=== PATIENT | female | born 1975 | race Caucasian/White ===

== ENCOUNTER → 2018-01-22 08:22 | Outpatient (CLI) | payer MEDICAID, SELFPAY ==
--- NOTE | 2018-01-22 08:44 | RAD_ITS ---
PROCEDURE: Fluoroscopic guided Lumbar Puncture. DATE: January 22, 2018. CLINICAL INDICATION: Idiopathic increased intracranial pressure. PHYSICIAN: Abbe Leblanc M.D. MEDICATIONS: 1% lidocaine administered subcutaneously for local anesthesia. ACCESS SITE: Lower posterior back. NEEDLE: 22-gauge spinal needle. SPECIMEN: Approximately 7 mL clear]CSF fluid. FLUOROSCOPY TIME (if supplied): (1:46) minutes/seconds COMPLICATIONS: None immediate. The risks, benefits, and alternatives to the procedure were explained to the patient. The specific risks of bleeding, infection, and neurovascular injury were detailed and accepted. Witnessed informed consent was obtained. The patient was placed on the fluoroscopic table in the prone position. The level for needle entry was determined and marked. The overlying skin was cleaned and prepped in the usual sterile fashion. 2% lidocaine was administered subcutaneously for local anesthesia. Under fluoroscopic guidance a 22-gauge spinal needle was advanced. The thecal sac was entered at the L3- L4 vertebral level. The inner stylet was removed. There was spontaneous flow of clear CSF fluid. Opening pressure was measured at less than 6 mm. The patient was placed in a reversed Trendelenburg position. Approximately 7 mL of cerebrospinal fluid was collected using gravity. The specimen was collected and submitted to the laboratory for further evaluation. The needle was withdrawn,. Hemostasis was achieved and a sterile dressing placed. The patient tolerated the procedure well without any immediate complications. The patient was placed supine with head elevated and returned to the floor in stable condition. RAD/Fluoro Guided Lumbar Puncture IMPRESSION: Successful fluoroscopic-guided lumbar puncture. Electronically Signed: Abbe Leblanc MD at 10:49 EDT Tel [phone], Service support ,
[2018-01-22 08:53] VITALS: BP 132/68; PULSE 79; RESP 16; TEMP 36.8; O2SAT 98; BMI 47.0
[2018-01-22 10:16] LABS: Oligoclonal Banding REF LAB
[2018-01-22 10:31] LABS: Body Fluid Mononuclear WBC # 0.001 10^3/uL; Body Fluid Polynuclear WBC # 0.001 10^3/uL; Total Cell Count CSF 0.002 10^3/uL (0.000-0.000); White Count, CSF 0.002 10^3/uL (0.000-0.000)
[2018-01-22 10:50] LABS: Glucose Spinal Fluid 51 mg/dL (40-75)
[2018-01-22 10:51] LABS: Appearance CSF (character) CLEAR (Clear); Auto B Fluid Analyzer BKGD Ct COUNTS W/IN LIMITS (W/IN LIMITS); Body Fluid QC Type(s) BF1Q; CSF Color COLORLESS (Colorless); RBC Count, Spinal Fluid 143 /mm-3 (None seen); Tested Tube # 2
[2018-01-22 10:55] VITALS: BP 126/57; PULSE 63; RESP 16; O2SAT 98
[2018-01-22 10:56] LABS: LDH,Body Fluid 26 Units/l (Not Establ.)
[2018-01-23 14:42] LABS: Pathologist Review Reviewed
== END ==
PROVIDERS: Family Provider Internal Medicine; PCP Internal Medicine
DX: G93.2 Benign intracranial hypertension (principal); R55 Syncope and collapse; Z86.73 Personal history of transient ischemic attack (TIA), and cerebral infarction without residual deficits; R32 Unspecified urinary incontinence; E78.5 Hyperlipidemia, unspecified
CPT/HCPCS: 62270; 77003; 82945; 83615; 83916; 84157; 87070; 87205; 89050; 89051

== ENCOUNTER 2018-07-18 12:00 | Outpatient (RCR) | payer MEDICAID, SELFPAY ==
--- NOTE | 2018-06-24 12:11 | HP.PTEVAL_ITS ---
Patient's Visit Information BERTO HAYS is a 42 year old F referred to Physical Therapy by Otto Schmitt with a diagnosis of Acute R knee pain, patellar tendonitis. Date of Evaluation: 06/11/18 Physical Therapist: Donnie Solis - Visit Plan Frequency: 2x /Week Duration: 6 Weeks Plan: Begin pt with LE stretching as tolerated. Use Ultrasound on pt's R petallar tendon to decrease inflamation. progress to LE strengthening as tolerated. - Subjective Subjective: pt reports R anterior knee pain following surgery 7 months ago. pt reported hearing a pop and feeling increased pain while pivoting at work 1 week ago. 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 pt reports a 7/10 pain on most days with little relief. pt attempts to alieviate pain by applying ice with little benefit. pt reports the use of knee band but was not wearing it upon evaluation. pt reports increased pain while ascending and descending stairs with dificulty climbing in and out of bed. - Pain Right Knee Pain Intensity (Out of 10): 0 Pain Intensity Range: 7 - Objective POSTURE: Pt. has normal posture in stance, except slight L wt. shift. Normal patellel hieghts and iliac crest symetrical. palpation: tender upon palpation of the anterior and anterior medial right knee (petellar tendon and joint line) and along MCL. neuro: normal sensation. did not assess petallar tendon reflex due to location of pain. ROM: R knee- 0-0-105. L knee 0-0-128deg. Pt. tender with increased knee flexion and extension of R knee. Tight HS on R side. MMT: pain with resisted knee extension. 5/5 strength for left lower extremity. right lower extremity - ankle 5/5, knee - extension 4+/5, flexion 4+/5. hip - flexion 4/5. gait: slight toeing out of the right food. slight decreased knee flexion during. difficutly ascending and descending stairs. Takes steps one at a time leading with the good up and the bad down. pt fearful to repeat reciprically. - Special Tests R Knee Tere - Meniscus: Positive R Knee Anterior Drawer - ACL: Negative R Knee Posterior Drawer - PCL: Negative R Knee Valgus - MCL: Positive R Knee Varus - LCL: Negative Comments: No laxity with MCL testing, but did have increased tenderness - Goals Goal 1:: pt be able to complete HEP independantly Goal Time Frame: 4-6 Weeks Goal 2:: decrease pain with walking to allow for all daily and work activities Goal Time Frame: 4-6 Weeks Goal 3:: increase ROM to allow for increased functional activity Goal Time Frame: 4-6 Weeks Goal 4:: increase R LE strength to 5/5, symetrical with L LE to allow for incrased navigation of stairs and stepping. Goal Time Frame: 4-6 Weeks Goal 5:: be able to ascend and descend stairs reciprically with only one handrail, allowing increased mobility Goal Time Frame: 4-6 Weeks - Rehabilitation Potential Physical Therapy Diagnosis: Pt. has signs and symptoms consistent with acute R knee pain with patellar tendonitis. Pt. would benefit from PT to decrease symptoms and promote increased stregnth. progressing back to functional mobility as tolerated. Rehabilitation Potential: Good - Anticipated Interventions Patient/Client Instruction: Educate patient on: Condition, Plan of Care, Risk Factors, Benefits of Fitness Program For the Purpose of:: To improve health and function, To foster healthy habits, To improve self management, To prevent re-injury Therapeutic Exercise to Include: Strength training, Power training, Balance training, Coordination, Flexibilty training, Passive ROM, Active ROM For the Purpose of:: To decrease pain, To decrease swelling/inflammation, To increase ROM, To improve muscle performance and motor function, To improve gait and locomotor functions, To improve health of tissue, To decrease soft tissue restriction, To increase flexibility/ROM, To improve balance TENS: Yes Cryotherapy (ice pack, ice massage): Yes Thermo therapy (hot pack): Yes Ultrasound (thermal/non thermal): Yes For the Purpose of:: To decrease pain, To decrease swelling/inflammation, To increase ROM Thank you for the opportunity to evaluate your patient. For Medicare and Medicare HMO plans, please review the plan of care and approve it. It will need to be FAXED BACK to us at [phone] for Medicare purposes. Please let me know if there are questions or concerns regarding this plan of care. Physician Signature: Date:
--- NOTE | 2018-07-18 13:06 | HP.PTDCSUM ---
HP - PT D/C Summary It has been my pleasure to treat BERTO HAYS under orders from Otto Schmitt, for the diagnosis of Acute R knee pain, patellar tendonitis for a total of 6 visit(s). Discharge Date: 07/18/18 Please see the following information for a summary of their discharge status. - Subjective Subjective: Pt. reports I am doing amazing. She reports no pain currently. Pt. is pleased with PT outcomes. - Pain Right Knee Pain Intensity (Out of 10): 0 - Overall Improvement % Improvement: 95 - Objective Objective/Function: MMT- 5/5 throughout bilateral LEs. ROM: L knee- 0-0-130deg. R AROM- 0-0-125 no pain. Gait: Pt. reports no pain with walking, she has slight increased lateral hip translation. Pt. has normal step lengthm, sligth decrease in knee flexion during gait. STAIRS: Pt. is able to complete with reciprocal pattern with 2 HR, but has increased fucntional weakness with descending. - Goals Goal 1:: pt be able to complete HEP independantly Goal Progress: Goal Met Goal 2:: decrease pain with walking to allow for all daily and work activities Goal Progress: Goal Met Goal 3:: increase ROM to allow for increased functional activity Goal Progress: Goal Met Goal 4:: increase R LE strength to 5/5, symetrical with L LE to allow for incrased navigation of stairs and stepping. Goal Progress: Goal Met Goal 5:: be able to ascend and descend stairs reciprically with only one handrail, allowing increased mobility Goal Progress: Progressing - Plan Plan: Pt. to be DC to HEP at this point in time. - D/C Information Discharge Comments: Pt. progressed as expected with PT. Pt. is no longer having pain. Pt. is back to completing all ADLs. Pt. reports no longer having pain in her knee. Pt. was treated with quad strengthening and progressing to [facility] functional strengthening. Pt. will be DC to PT at this point in time. If there are questions or concerns regarding this patient's physical therapy, please feel free to call me at [phone]. Thank you for the referral of this patient. Sincerely, Donnie Solis
== END 2018-07-18 14:12 | disposition home or self-care (01) ==
LOC: PT 12:00
PROVIDERS: Family Provider Internal Medicine; PCP Internal Medicine; Visit Provider Orthopaedic Surgery
DX: M25.561 Pain in right knee (principal); M76.51 Patellar tendinitis, right knee
CPT/HCPCS: 97035; 97110; 97162; 97530

== ENCOUNTER → 2020-04-27 13:33 | Outpatient (CLI) | payer MEDICAID, SELFPAY ==
--- NOTE | 2020-04-27 13:35 | RAD_ITS ---
STUDY: X-RAY - RIGHT KNEE REASON FOR EXAM: Pain. TECHNIQUE: 4 view(s) of the knee. COMPARISON: None. FINDINGS: Normal visualized distal femur. Normal visualized proximal tibia and fibula. Normal proximal tibiofibular articulation. There is mild joint space narrowing of the medial femorotibial compartment. Normal lateral femorotibial compartment. Normal patellofemoral articulation. The soft tissue structures are unremarkable. RAD/Knee 4 or More Views IMPRESSION: Mild joint space narrowing of the medial femorotibial compartment. Electronically Signed: Francesco Dickson MD at 14:34 EDT Tel , Service support ,
== END ==
PROVIDERS: PCP Internal Medicine; Referring Provider Orthopaedic Surgery; Visit Provider Orthopaedic Surgery
DX: S80.01XA Contusion of right knee, initial encounter (principal)
CPT/HCPCS: 73564

== ENCOUNTER 2020-06-10 14:30 | Outpatient (RCR) | payer OTHER, MEDICAID, SELFPAY ==
[2020-04-27 14:28] VITALS: BMI 47.2
--- NOTE | 2020-05-20 16:47 | HP.PTEVAL_ITS ---
Patient's Visit Information BERTO HAYS is a 44 year old F referred to Physical Therapy by MARIE Melendez with a diagnosis of Right Knee Contusion. Date of Evaluation: 05/20/20 Physical Therapist: Kelsey Berg DPT - Visit Plan Frequency: 3x /Week Duration: 3 Weeks Plan: Focus on LE and core strenth/stabilzation- US for inflammation modality - Subjective Patient reports that she fell on April 13 at work- rug in the closet was folded over and she fell on her right knee. Has had surgery on the right knee. Patient reports the pain is getting better. Pain is located along the medial patella and joint line. Describes the pain as dull and achy. Worst: 10 Agg: working, walking, bending, stooping Eases: Naproxen if its bad Best: 10/17. No radiating pain. No N/T in the toes. Has had x-rays but no MRI- no injections. The leg does buckle under her but that is not since the fall. 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 Sleep: disturbed.PMHx: Stroke- right sided weakness, tounge tied, small memory loss, HTN Meds: no changes since NOW clinic visit. - Objective Posture: FH, RS, Increased kyphosis-can correct but does not maintain. Gait: antalgic- decreased stance on the right LE- poor heel strike. HR/TR: able reports discomfort with TR in the knee. SLS: 7 seconds then LOB. Tandem stance: x5 steps no LOB. Sensation; WNL to gross touch bilaterally. Palpation: tender along medial joint line. ROM:0-120 degrees- pain with end range extension feels like it will hyper extend. Strength:Ankle: 5/5, Knee: 4+/5, Hip: 4/5 throughout Core: fair minus. Special Test: Tere: positive - Goals Goal 1:: Patient will be I with HEP and progression Goal Time Frame: 4-6 Weeks Goal 2:: Patient will ambulate <300 feet with a normalized gait pattern Goal Time Frame: 4-6 Weeks Goal 3:: Patient will asc/desc 8' stairs recip with 1 HR Goal Time Frame: 4-6 Weeks Goal 4:: Patient will report 0/10 pain for 1 week Goal Time Frame: 4-6 Weeks - Rehabilitation Potential Physical Therapy Diagnosis: Patient presents with hypomobility- she has decreased strength, flex and muscular endurance leading to increased pain with ADL's. Rehabilitation Potential: Good - Anticipated Interventions Patient/Client Instruction: Educate patient on: Benefits of Fitness Program Therapeutic Exercise to Include: Strength training, Endurance training, Balance training, Body mechanics, Postural training, Flexibilty training, Gait and locomotor training, Neuromotor development, Passive ROM, Active ROM, Dynamic Lumbar Stabilization, Scapular Strength/Stabilization For the Purpose of:: To improve muscle performance and motor function TENS: Yes Cryotherapy (ice pack, ice massage): Yes Thermo therapy (hot pack): Yes Ultrasound (thermal/non thermal): Yes For the Purpose of:: To decrease pain Thank you for the opportunity to evaluate your patient. For Medicare and Medicare HMO plans, please review the plan of care and approve it. It will need to be FAXED BACK to us at [phone] for Medicare purposes. For Medicare only, by signing this I certify the plan of care. Please let me know if there are questions or concerns regarding this plan of care. Physician Signature: __Date:
--- NOTE | 2020-06-10 14:48 | HP.PTDCSUM ---
It has been my pleasure to treat BERTO HAYS referred by MARIE Melendez, with the diagnosis of Right Knee Contusion for a total of 6 visit(s). Discharge Date: Please see the following information for a summary of their discharge status. Subjective: Patient reports that she is a little sore at work but when she is at home its not as bad. / today. The only problem now is that she is overweight so that is whats bothering her knees. Ready to be done with PT Right Knee Pain Intensity (Out of 10): 4 % Improvement: 90 Objective/Function: Posture: FH, RS, Increased kyphosis-can correct but does not maintain for longer than 1 min before she slumps. Stairs: asc and desc 8 recip with no HR. Gait: no deviation noted and her fausto is normal HR/TR: no pain SLS: 12 seconds then LOB. Tandem stance: x5 steps no LOB. Sensation; WNL to gross touch bilaterally. Palpation: not tender to touch. ROM:0-120 degrees-no pain Strength:Ankle: 5/5, Knee: 5/5, Hip: 4+/5 throughout Core: fair. Special Test: Tere: positive Goal 1:: Patient will be I with HEP and progression Goal Progress: Goal Met Goal 2:: Patient will ambulate <300 feet with a normalized gait pattern Goal Progress: Goal Met Goal 3:: Patient will asc/desc 8' stairs recip with 1 HR Goal Progress: Goal Met Goal 4:: Patient will report 0/10 pain for 1 week Goal Progress: Progressing Plan: Discharge to [facility] If there are questions or concerns regarding this patient's physical therapy, please feel free to call me at [phone]. Thank you for the referral of this patient. Sincerely, Kelsey Berg DPT
== END 2020-06-10 19:00 | disposition home or self-care (01) ==
LOC: PT 14:30
PROVIDERS: PCP Internal Medicine; Visit Provider Physician Assistant Surgical
DX: S80.01XD Contusion of right knee, subsequent encounter (principal)
CPT/HCPCS: 97014; 97035; 97110; 97161; 97164; G0283

== ENCOUNTER → 2021-01-05 08:22 | Outpatient (CLI) | payer MEDICAID, SELFPAY ==
[2020-04-27 14:28] VITALS: BMI 47.2
--- NOTE | 2021-01-05 08:30 | RAD_ITS ---
STUDY: X-RAY - ESOPHAGUS (BARIUM SWALLOW) WITH FLUOROSCOPY REASON FOR EXAM: Female, 45 years old. DYSPHAGIA. History of gastroesophageal reflux disease. TECHNIQUE: 16 view(s) of the esophagus were obtained following swallowing of barium. FLUOROSCOPY TIME (if supplied): (0:32) minutes/seconds COMPARISON: None. FINDINGS: There is no demonstrated esophageal foreign body. There is no demonstrated stricture or mucosal abnormality. Moderate sized hiatal hernia with gastroesophageal reflux. The patient ingested a 12 mm tablet of barium without any difficulty. Normal visualized aortic arch and descending thoracic aorta. Normal visualized pulmonary parenchyma. Normal visualized osseous structures of the thorax. RAD/Esophagus Dual Contrast IMPRESSION: Moderate sized hiatal hernia with gastroesophageal reflux. Electronically Signed: Abbe Leblanc MD at 13:21 EDT , Service support ,
== END ==
PROVIDERS: PCP Registered Nurse; Referring Provider Nurse Practitioner Adult Health; Visit Provider Nurse Practitioner Adult Health
DX: R13.10 Dysphagia, unspecified (principal)
CPT/HCPCS: 74221

== ENCOUNTER 2021-02-08 08:12 | Day surgery (SDC) | payer MEDICAID, SELFPAY ==
[2021-01-17 13:12] VITALS: BMI 51.7
--- NOTE | 2021-02-08 | COLBX_PTH ---
PATIENT: BERTO ARAIZA LOC: [facility] U#:[id number] AGE/SX: 45/F ROOM: RE02/08/[address]: Dr. Antony Coronado MD : 1975 BED: DIS: 02/08/2021 SPEC #: [id number] RECD: 02/08/21 11:12 STATUS: BASHIR RICARDO #: [id number] JOSEPH: 02/08/21 00:[address]: Antony Coronado DEPT: SURGICAL PATHOLOGY RECD BY: Daniel Sprague ENTERED: 02/08/21 11:13 SP TYPE: COLON BX OTHR DR: Flor Gilbert, [employer]-C Tissues: A - Duodenum, NOS B - Gastrointestinal mucous membrane, NOS C - Esophageal mucous membrane D - Esophageal mucous membrane Procedures: Special Stain Group II Surgery Specimen Level IV Alcian Blue/PAS (control) HEADER OPERATION: Colonoscopy, EGD ([place]) PRE-OP DIAGNOSIS: Right lower quadrant abdominal pain; diarrhea; constipation; esophageal dysphagia; GERD TISSUE SUBMITTED: A ? Duodenum biopsy, B ? Antrum biopsy for H. pylori and path, C ? Distal esophagus biopsy, D ? Mid esophagus biopsy MICROSCOPIC DIAGNOSIS A. Duodenum, biopsy: A fragment of duodenal mucosa, no pathologic diagnosis. B. Antrum, biopsy: Mild gastritis. See microscopic description and comment. C. Distal esophagus, biopsy: A fragment of gastroesophageal mucosa with mild chronic inflammation. Intestinal metaplasia (goblet cell metaplasia) not identified. See comment. D. Mid esophagus, biopsy: Fragments of squamous epithelium with changes consistent with eosinophilic esophagitis. See comment. SJ:rg 02/09/2021 COMMENT B. The results of immunohistochemistry for Helicobacter pylori will be reported separately ([id number]). C. Alcian blue/PAS stain with matched control is used in the evaluation of the specimen. D. Increased number of eosinophils (more than 20 per high power field) are noted consistent with eosinophilic esophagitis. Mild chronic inflammation is also noted. Correlation with clinical, endoscopic findings and appropriate follow up are necessary. Case has been reviewed in consultation with Dr. Gavin who concurs with the above diagnosis. IDC:AM MICROSCOPIC DESCRIPTION Slides are reviewed. B. The specimen shows fragments of gastric mucosa with chronic inflammatory cell infiltrates in the lamina propria consisting of lymphocytes and plasma cells, consistent with mild chronic gastritis. GROSS DESCRIPTION A - Received in fixative is one container labeled with the patient's name and designated duodenum biopsy. The specimen consists of one irregular fragment of light gasca soft tissue that measures 0.3 x 0.3 x 0.1 cm. The specimen is totally submitted in one cassette. B - Received in fixative is one container labeled with the patient's name and designated antrum biopsy. The specimen consists of one irregular fragment of light gasca soft tissue that measures 0.3 x 0.2 x 0.1 cm. The specimen is totally submitted in one cassette. C - Received in fixative is one container labeled with the patient's name and designated distal esophagus biopsy. The specimen consists of one irregular fragment of light gasca soft tissue that measures 0.4 x 0.3 x 0.1 cm. The specimen is totally submitted in one cassette. D - Received in fixative is one container labeled with the patient's name and designated mid esophagus biopsy. The specimen consists of multiple irregular fragments of light gasca soft tissue that in aggregate measure 0.6 x 0.2 x 0.1 cm. The specimen is totally submitted in one cassette. / SJ:elsie 02/08/21 TC:3 [facility]: [id number], [id number]
[2021-02-08] MEDS: Lactated Ringers 1,000 ML 100 ML IV (08:46)
[2021-02-08 08:47] VITALS: BP 158/81; PULSE 88; RESP 16; TEMP 36.3; BMI 51.0
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
--- NOTE | 2021-02-08 09:30 | IMM_PTH ---
PATIENT: BERTO ARAIZA LOC: [facility] U#:[id number] AGE/SX: 45/F ROOM: RE02/08/[address]: Dr. Antony Coronado MD : 1975 BED: DIS: 02/08/2021 SPEC #: [id number] RECD: 02/08/21 12:03 STATUS: BASHIR RICARDO #: [id number] JOSEPH: 02/08/21 09:[address]: Antony Coronado DEPT: IMMUNOHISTOCHEMISTRY RECD BY: Radha Mcghee ENTERED: 02/08/21 12:03 SP TYPE: IMMUNO OTHR DR: Flor Gilbert, BONNIE-C Tissues: B - Stomach, NOS Procedures: H Pylori (initial) PHYSICIAN & INSTITUTION [place] [id number] SPECIMEN INFORMATION: Tissue Source: B ? Antrum biopsy Clinical Info: RLQ abdominal pain; diarrhea; constipation; esophageal dysphagia; GERD Specimen Number: [id number] CPT code: 54425 METHODOLOGY: Deparaffinized sections of prefer/formalin-fixed tissue or PAP/DQ stained slides are incubated with monoclonal/polyclonal antibodies/oligonucleotide probes. Localization is made via biotin free immunoperoxidase method. Appropriate controls are performed and reacted as expected. Results on target cell population are indicated in the following table: RESULTS: ANTIBODY / CLONE RESULT Block B H Pylori (polyclonal) negative These tests were developed and their performance characteristics determined by [facility]. They may not have been cleared or approved by the U.S. Food and Drug Administration. The FDA has determined that such clearance or approval is not necessary. INTERPRETATION: B. Antrum biopsy: Negative for Helicobacter pylori organisms. SJ:elise 02/09/2021
[2021-02-08 09:55] VITALS: BP 144/101; BP 158/81; PULSE 102; RESP 20; TEMP 36.7; O2SAT 93
--- NOTE | 2021-02-08 09:57 | OP.CCLET_ITS ---
02/08/2021 Flor Gilbert Re : Upper GI endoscopy procedure for Lesia To Dear Vladimir This procedure was performed on Monday, February 08, 2021. My impressions and recommendations are as follows: Impressions : - Z-line regular, 36 cm from the incisors. Biopsied. - Normal mid esophagus. Biopsied. - Large hiatal hernia. - Erythematous mucosa in the antrum. Biopsied. - Normal examined duodenum. Biopsied. Recommendations : - Discharge patient to home. - Resume previous diet. - Continue present medications. - Telephone my office for pathology results in 1 week. Consider bariatric procedures with hernia repair My findings are described in the full procedure note, which is enclosed. If I can be of further assistance, please feel free to contact me at Doctor phone number(s): Work: . Sincerely, Antony Coronado MD 02/08/2021 9:56:39 AM This report has been signed electronically.
--- NOTE | 2021-02-08 09:57 | OP.EGD_ITS ---
Patient Name: Lesia To Procedure Date: 02/08/2021 9:15 AM Date of : 1975 Age: 45 Procedure: Upper GI endoscopy Indications: Dysphagia Providers: Antony Coronado MD Referring MD: Flor Gilbert Medicines: See the Anesthesia note for documentation of the administered medications Complications: No immediate complications. Procedure: Pre-Anesthesia Assessment: - Prior to the procedure, a History and Physical was performed, and patient medications and allergies were reviewed. The patient's tolerance of previous anesthesia was also reviewed. The risks and benefits of the procedure and the sedation options and risks were discussed with the patient. All questions were answered, and informed consent was obtained. Prior Anticoagulants: The patient has taken Plavix (clopidogrel), last dose was 2 days prior to procedure. ASA Grade Assessment: III - A patient with severe systemic disease. After reviewing the risks and benefits, the patient was deemed in satisfactory condition to undergo the procedure. After obtaining informed consent, the endoscope was passed under direct vision. Throughout the procedure, the patient's blood pressure, pulse, and oxygen saturations were monitored continuously. The gastroscope was introduced through the mouth, and advanced to the second part of duodenum. The upper GI endoscopy was accomplished without difficulty. The patient tolerated the procedure well. Scope In: 9:25:48 AM Scope Out: 9:33:09 AM Total Procedure Duration Time 0 hours 7 minutes 21 seconds Findings: The Z-line was regular and was found 36 cm from the incisors. Biopsies were taken with a cold forceps for histology. The mid esophagus was normal. Biopsies were taken with a cold forceps for histology. A large hiatal hernia was present. Diffuse mildly erythematous mucosa without bleeding was found in the gastric antrum. Biopsies were taken with a cold forceps for histology. The examined duodenum was normal. Biopsies were taken with a cold forceps for histology. Impression: - Z-line regular, 36 cm from the incisors. Biopsied. - Normal mid esophagus. Biopsied. - Large hiatal hernia. - Erythematous mucosa in the antrum. Biopsied. - Normal examined duodenum. Biopsied. Recommendation: - Discharge patient to home. - Resume previous diet. - Continue present medications. - Telephone my office for pathology results in 1 week. Consider bariatric procedures with hernia repair Procedure Code(s): --- Professional --- 91926, Esophagogastroduodenoscopy, flexible, transoral; with biopsy, single or multiple Diagnosis Code(s): --- Professional --- K44.9, Diaphragmatic hernia without obstruction or gangrene K31.89, Other diseases of stomach and duodenum R13.10, Dysphagia, unspecified CPT copyright 2017 [employer]. All rights reserved. The codes documented in this report are preliminary and upon special machine stitcher review may be revised to meet current compliance requirements. Antony Coronado MD 02/08/2021 9:56:39 AM This report has been signed electronically. Number of Addenda: 0 Note Initiated On: 02/08/2021 9:15 AM
[2021-02-08 10:00] VITALS: BP 154/73; BP 158/81; PULSE 96; RESP 18; O2SAT 96
--- NOTE | 2021-02-08 10:02 | OP.CCLET_ITS ---
02/08/2021 Flor Gilbert Re : Colonoscopy procedure for Lesia To Dear Vladimir This procedure was performed on Monday, February 08, 2021. My impressions and recommendations are as follows: Impressions : - Hemorrhoids found on perianal exam. - Diverticulosis in the sigmoid colon and in the descending colon. - A few colonic angioectasias. An orange fluid was noted throughout the entire colon, difficult to tell if part of her oral intake or very dilute blood. Patient's mucosa very fragile to scope movement and touching with easy bleeding. - No specimens collected. Recommendations : - Discharge patient to home. - Resume previous diet. - Continue present medications. - Repeat colonoscopy in 10 years for screening purposes. My findings are described in the full procedure note, which is enclosed. If I can be of further assistance, please feel free to contact me at Doctor phone number(s): Work: . Sincerely, Antony Coronado MD 02/08/2021 10:01:43 AM This report has been signed electronically.
--- NOTE | 2021-02-08 10:02 | OP.COLON_ITS ---
Patient Name: Lesia To Procedure Date: 02/08/2021 9:34 AM Date of : 1975 Age: 45 Procedure: Colonoscopy Indications: Screening for colorectal malignant neoplasm Providers: Antony Coronado MD Referring MD: Flor Gilbert Medicines: See the Anesthesia note for documentation of the administered medications Patient Profile: Last Colonoscopy: April 2010. Complications: No immediate complications. Procedure: Pre-Anesthesia Assessment: - Prior to the procedure, a History and Physical was performed, and patient medications and allergies were reviewed. The patient's tolerance of previous anesthesia was also reviewed. The risks and benefits of the procedure and the sedation options and risks were discussed with the patient. All questions were answered, and informed consent was obtained. Prior Anticoagulants: The patient has taken Plavix (clopidogrel), last dose was 2 days prior to procedure. ASA Grade Assessment: III - A patient with severe systemic disease. After reviewing the risks and benefits, the patient was deemed in satisfactory condition to undergo the procedure. After I obtained informed consent, the scope was passed under direct vision. Throughout the procedure, the patient's blood pressure, pulse, and oxygen saturations were monitored continuously. The colonoscope was introduced through the anus and advanced to the cecum, identified by appendiceal orifice and ileocecal valve. The colonoscopy was performed without difficulty. The patient tolerated the procedure well. The quality of the bowel preparation was good. The ileocecal valve and the appendiceal orifice were photographed. Scope In: 9:36:13 AM Scope Withdrawal Time 0 hours 9 minutes 35 seconds Scope Out: 9:50:08 AM Total Procedure Duration Time 0 hours 13 minutes 55 seconds Findings: Hemorrhoids were found on perianal exam. Scattered diverticula were found in the sigmoid colon and descending colon. A few patchy angioectasias with bleeding on contact were found in the cecum. Impression: - Hemorrhoids found on perianal exam. - Diverticulosis in the sigmoid colon and in the descending colon. - A few colonic angioectasias. An orange fluid was noted throughout the entire colon, difficult to tell if part of her oral intake or very dilute blood. Patient's mucosa very fragile to scope movement and touching with easy bleeding. - No specimens collected. Recommendation: - Discharge patient to home. - Resume previous diet. - Continue present medications. - Repeat colonoscopy in 10 years for screening purposes. Procedure Code(s): --- Professional --- 13581, Colonoscopy, flexible; diagnostic, including collection of specimen(s) by brushing or washing, when performed (separate procedure) Diagnosis Code(s): --- Professional --- Z12.11, Encounter for screening for malignant neoplasm of colon K64.9, Unspecified hemorrhoids K55.20, Angiodysplasia of colon without hemorrhage K57.30, Diverticulosis of large intestine without perforation or abscess without bleeding CPT copyright 2017 [employer]. All rights reserved. The codes documented in this report are preliminary and upon pre coder review may be revised to meet current compliance requirements. Antony Coronado MD 02/08/2021 10:01:43 AM This report has been signed electronically. Number of Addenda: 0 Note Initiated On: 02/08/2021 9:34 AM
[2021-02-08 10:05] VITALS: BP 106/87; BP 158/81; PULSE 90; RESP 18; O2SAT 99
[2021-02-08 10:10] VITALS: BP 127/78; BP 158/81; PULSE 87; RESP 18; TEMP 36.6; O2SAT 98
[2021-02-08 10:43] VITALS: BP 158/81
== END 2021-02-08 10:53 | disposition home or self-care (01) ==
LOC: EN 08:12 → AC 08:13
PROVIDERS: PCP Registered Nurse; Referring Provider Registered Nurse; Visit Provider Surgery
PROC: 0DJD8ZZ Inspection of Lower Intestinal Tract, Via Natural or Artificial Opening Endoscopic (ICD-10-PCS; CPT 45378; principal; 2021-02-08 09:25)
DX: K29.70 Gastritis, unspecified, without bleeding (principal); Z12.11 Encounter for screening for malignant neoplasm of colon; K64.9 Unspecified hemorrhoids; K57.30 Diverticulosis of large intestine without perforation or abscess without bleeding; K55.20 Angiodysplasia of colon without hemorrhage; K21.00 Gastro-esophageal reflux disease with esophagitis, without bleeding; K44.9 Diaphragmatic hernia without obstruction or gangrene; K21.9 Gastro-esophageal reflux disease without esophagitis; I10 Essential (primary) hypertension; F41.9 Anxiety disorder, unspecified; F32.9 Major depressive disorder, single episode, unspecified; M19.90 Unspecified osteoarthritis, unspecified site; Z86.73 Personal history of transient ischemic attack (TIA), and cerebral infarction without residual deficits; Z79.82 Long term (current) use of aspirin; Z79.899 Other long term (current) drug therapy
CPT/HCPCS: 43239; 45378; 87426; 88305; 88313; 88342; C9803; J7120; J2405

== ENCOUNTER → 2021-08-12 13:45 | Outpatient (CLI) | payer MEDICAID, SELFPAY ==
[2021-08-12 15:26] LABS: Absolute Lymphocyte Count 1.49 X10^3/uL (0.83-4.51); Basophil# 0.02 X10^3/uL; Basophil% 0.3 % (0-1); Eosinophil# 0.16 X10^3/uL; Eosinophils% 2.7 % (0-5); Hemoglobin 13.1 g/dL (12.0-15.0); Lymphocyte # 1.49 X10^3/ul (0.83-4.51); Lymphocyte % 24.8 % (19-41); Mean Corpuscular Hgb 26.8 pg (27.0-32.0); Mean Platelet Vol. 10.4 fl (6.2-12.0); Monocyte# 0.35 X10^3/uL; Monocyte% 5.8 % (0-10); NRBC Flagged by Analyzer 0 % (0-5); Neutrophil # 3.95 X10^3/uL (2.7-7.7); Neutrophil % 65.9 % (47-70); Platelet Count 312 K/mm3 (150-450); RBC Distribution Width CV 12.8 % (11.6-14.6); RBC Distribution Width SD 38.9 fl (35.1-43.9); Red Blood Count 4.88 M/mm3 (4.2-5.4)
[2021-08-12 15:59] LABS: AST(SGOT) 16 U/L (15-37); Alanine Aminotransfer ALT/SGPT 29 U/L (13-56); Albumin, Serum 3.5 g/dL (3.2-5.0); Alkaline Phosphatase 79 U/L (45-117); Anion Gap 6 (5-15); BUN 13 mg/dL (7-18); BUN/Creat Ratio 16.6 RATIO (10-20); Bilirubin, Direct 0.11 mg/dL (0.00-0.30); Calcium,Total 9.1 mg/dL (8.5-10.1); Chloride 107 mmol/L (98-107); Creatinine, Serum 0.78 mg/dL (0.55-1.02); EST Glomerular Filtration Rate 84 mL/min (>60); Est Glom Filt Rate - Afr Amer 102 mL/min (>60); Globulin 4.3 g/dL (2.2-4.2); Glucose 83 mg/dL (74-106); Potassium 3.6 mmol/L (3.5-5.1); Protein, Total 7.8 g/dL (6.4-8.2); Sodium Level 140 mmol/L (136-145)
[2021-08-15 09:40] LABS: Hepatitis B Surface Antibody Reactive; Hepatitis B Surface Antigen Non-Reactive (Nonreactive); Hepatitis C Antibody Non-Reactive (Nonreactive)
[2021-08-18 18:08] LABS: QNTFERON TB Mitogen Value > 10.00 IU/mL (.); QNTFERON TB Nil Value 0.07 IU/mL (.); QNTFERON TB1+ Ag Value 0.06 IU/mL (.); QNTFERON TB2+ Ag Value 0.06 IU/mL (.)
[2021-08-19 13:49] LABS: Hepatitis B Core Ab Total Negative (Negative); QNTIFERON TB Positive Criteria Negative (Negative)
== END ==
PROVIDERS: PCP Registered Nurse; Referring Provider Physician Assistant Medical; Visit Provider Physician Assistant Medical
DX: L40.0 Psoriasis vulgaris (principal); Z79.899 Other long term (current) drug therapy
CPT/HCPCS: 36415; 80048; 80076; 85025; 86480; 86704; 86706; 86803; 87340

== ENCOUNTER → 2025-01-19 | Outpatient (CLI) | payer BC, SELFPAY ==
--- NOTE | 2025-01-19 16:51 | US_ITS ---
PROCEDURE: THYROID (USTHY), 01/19/2025 REASON FOR EXAM: HX THYROID NODULES, NEW DIFFICULTY SWALLOWING TECHNIQUE: Grayscale and color Doppler imaging of the thyroid was performed. COMPARISON: None FINDINGS: Right lobe measures 5.2 x 1.5 x 1.5cm. Essentially homogeneous background echotexture. No abnormal vascularity. Nodules as below: *Midgland, 4 x 3 x 3 mm, solid, mildly hypoechoic, TI-RADS 4. *Tiny colloid cyst, not suspicious. Left lobe measures 4.9 x 1.3 x 1.4 cm. Essentially homogeneous background echotexture. No abnormal vascularity. Nodules as below: *Upper pole, 6 x 4 x 6 mm, cystic versus solid and very hypoechoic, slightly irregular margins, best considered TI-RADS 5. *Lower pole, 14 x 8 x 7 mm, solid, hypoechoic, TI-RADS 4. Isthmus measures 3 mm in thickness. US/Thyroid IMPRESSION: 1. Assessment is TI-RADS 5. No nodules currently meet criteria for FNA. Recomm end follow-up in 1 year per the below. 2. Normal size gland with essentially unremarkable background echotexture. No abnormal vascularity. Management recommendations for TI-RADS 4 findings: FNA if = 1.5 cm; Follow if = 1 cm at 1, 2, 3, and 5 years. Management recommendations for TI-RADS 5 findings: FNA if = 1 cm; Follow if = 0 .5 cm annually until 5 years. Recommendations per ACR Thyroid Imaging, Reporting and Data System (TI-RADS): Leonora padilla Paper of the ACR TI-RADS Committee, 2017 ([email or web address]/[email or web address]) Reading Location: [id number]
== END | disposition home or self-care (01) ==
LOC: US 16:49
PROVIDERS: PCP Registered Nurse; Referring Provider Physician Assistant; Visit Provider Physician Assistant
DX: E04.1 Nontoxic single thyroid nodule (principal); R13.10 Dysphagia, unspecified
CPT/HCPCS: 76536

== ENCOUNTER → 2025-01-28 | Outpatient (CLI) | payer BC, SELFPAY ==
--- NOTE | 2025-01-28 08:31 | CDU_ITS ---
Reason For Study Reason For Study: FMD Rt. Velocities/BP Lt. Velocities/BP Prox CCA 80.6/14.5 cm/sec. Prox CCA 88.3/21.2 cm/sec. Mid CCA 89.1/22 cm/sec. Mid CCA 88.3/20.1 cm/sec. Dist CCA 67.4/19.2 cm/sec. Dist CCA 72.9/22.3 cm/sec. Prox ICA 59.8/19.2 cm/sec. Prox ICA 61.2/20.1 cm/sec. Mid ICA 121.1/48 cm/sec. Mid ICA 77.9/32.1 cm/sec. Dist ICA 150.3/59 cm/sec. Dist ICA 132.4/38 cm/sec. Rt. ICA/CCA = 1.69. Lt. ICA/CCA = 1.50. Prox ECA 57.9/8.8 cm/sec. Prox ECA 59.8/12.6 cm/sec. Rt. Vert. 47.2/10.9 cm/sec. Lt. Vert. 44.7/16.3 cm/sec. Right Extracranial There is intimal thickening but no significant atherosclerotic plaque noted in the right common carotid artery. There is intimal thickening but no significant atherosclerotic plaque noted in the right internal carotid artery. The right internal carotid artery is very tortuous. There is intimal thickening but no significant atherosclerotic plaque noted in the right external carotid artery. Left Extracranial There is intimal thickening but no significant atherosclerotic plaque noted in the left common carotid artery. There is intimal thickening but no significant atherosclerotic plaque noted in the left internal carotid artery. The left internal carotid artery is very tortuous. There is intimal thickening but no significant atherosclerotic plaque noted in the left external carotid artery. Antegrade flow is noted in the left vertebral artery. Procedure Carotid Duplex 27859. This is a Carotid Duplex examination using B-mode, color flow and specral Doppler. Exam performed in department. VL/Carotid Duplex Ultrasound Interpretation Summary Moderate (50-69%) stenosis right extracranial internal carotid. Moderate (50-69%) stenosis left extracranial internal carotid. Patent and antegrade vertebrals bilaterally. Ordering Physician: Ruthie Carrion Referring Physician: Flor Gilbert Performed By: Zahida Butcher RVT
--- NOTE | 2025-01-28 08:31 | RDU_ITS ---
Reason For Study Reason For Study: FMD Right Renal Artery Left Renal Artery Right renal artery ostium 113/43 RSV/EDV. Left renal artery ostium 61.4/17.9 Right renal artery proximal 170/66.3 PSV/EDV. PSV/EDV. Left renal artery proximal PSV/EDV Right renal artery mid 182.9/66.3 70.4/26.9 . PSV/EDV. Left renal artery mid 74.9/28.4 PSV/EDV . Right renal artery distal 167.4/66.3 Left renal artery distal 90.9/32.4 PSV/EDV. PSV/EDV. Right RAR 2.47. Left RAR 1.23. Right Renal Parenchyma Left Renal Parenchyma Upper Pole Medula 26.7/9.7 PSV/EDV. Left upper pole medulla 32.2/11.9 Right upper pole medulla EDR 0.4 . PSV/EDV . Right upper pole medulla R.I. 0.64 . Left upper pole medulla EDR 0.4 . Upper Roland Cortx 17.7/6.8 PSV/EDV. Left upper pole medulla R.I. 0.63 . Right upper pole cortex EDR 0.4 . UP Cortex 21.8/5.8 PSV/EDV. Right upper pole cortex R.I. 0.62 . Left upper pole cortex EDR 0.3 . Right lower Pole medulla 24.7/10.7 Left upper pole cortex R.I. 0.73 . PSV/EDV . Left lower Pole medulla 28.4/8.6 Right lower pole medulla EDR 0.4 . PSV/EDV . Right lower pole medulla R.I. 0.57 . Left lower pole medulla EDR 0.3 . Lower Pole Cortex 17.7/6.4 PSV/EDV. Left lower pole medulla R.I. 0.70 . Right lower pole cortex EDR 0.4 . Lower Pole Cortx 19.6/5.8 PSV/EDV. Right lower pole cortex R.I. 0.64 . Left lower pole cortex EDR 0.3 . Right Renal Hilar Left lower pole cortex R.I. 0.70 . Right Hilar avg 65.8/22.8 PSV/EDV. Left Renal Hilar Right hilar acceleration time 60 m/sec. LT Hilar avg 110.5/27.9 PSV/EDV . Right Renal Dimensions Left hilar acceleration time 70 m/sec. Right kidney size 10.28 cm . Left Renal Dimensions Right cortical dimension 1.61 cm . Left kidney size 10.65 cm . Left cortical dimension 1.67 cm . Aorta Proximal abdominal aorta 1.96 x 1.98 cm . Proximal abdominal aorta peak systolic velocity is 108.8 cm/sec . Distal abdominal aorta 1.91 x 1.84 cm . Distal abdominal aorta peak systolic velocity is 74.1 cm/sec . . Celiac artery, 231.6/73.1 cm/sec. Hepatic artery, 202.5/66.6 cm/sec. Splenic artery, 166.8/50.4 cm/sec. SMA origin, Not visualized due to bowel gas. SMA prox, 189.5/18.1 cm/sec. SMA mid, 153.9/18.1 cm/sec. SMA distal, 105.4/11.6 cm/sec. DWIGHT origin, 78.1/10.1 cm/sec. DWIGHT prox, 125.4/8.4 cm/sec. DWIGHT mid, 70.5/9.1 cm/sec. VL/Renal Artery Duplex Ultrasound Interpretation Summary Right renal artery patent with < 60% stenosis. Left renal artery patent with normal velocities and no evidence of stenosis. Right renal vein patent. Left renal vein patent. Right kidney normal in size. Left kidney normal in size. Celiac artery patent with normal velocities and no evidence of stenosis. Superior mesenteric artery patent with normal velocities and no evidence of joe nosis. Inferior mesenteric artery patent with normal velocities and no evidence of joe nosis. Ordering Physician: Ruthie Carrion Referring Physician: Flor Gilbert Performed By: Zahida Butcher RVT
== END | disposition home or self-care (01) ==
PROVIDERS: PCP Registered Nurse; Referring Provider Physician Assistant; Visit Provider Physician Assistant
DX: I77.3 Arterial fibromuscular dysplasia (principal); Z86.73 Personal history of transient ischemic attack (TIA), and cerebral infarction without residual deficits
CPT/HCPCS: 93880; 93975

== ENCOUNTER 2025-02-04 12:47 | Day surgery (SDC) | payer BC, SELFPAY ==
[2025-02-04 13:22] VITALS: BP 129/74; PULSE 51; RESP 16; TEMP 36.6; O2SAT 100; BMI 39.2
[2025-02-04] MEDS: Lactated Ringers 1,000 ML 15 ML IV (13:27)
--- NOTE | 2025-02-04 14:15 | EGD_PTH ---
PATIENT: BERTO ARAIZA LOC: EN U#:[id number] AGE/SX: 49/F ROOM: RE02/04/[address]: Dr. Jose G Sanches DO : 1975 BED: DIS: 02/04/2025 SPEC #: [id number] RECD: 02/04/25 17:33 STATUS: BASHIR RICARDO #: [id number] JOSEPH: 02/04/25 14:[address]: Jose G Sanches DEPT: SURGICAL PATHOLOGY RECD BY: Chai Luque ENTERED: 02/05/25 10:06 SP TYPE: EGD BIOPSY OT DR: Kami Primary Care Phys Tissues: A - Esophagus, NOS Procedures: Surgery Specimen Level IV HEADER OPERATION: EGD with biopsy and dilated PRE-OP DIAGNOSIS: Dysphagia, eosinophilic esophagitis TISSUE SUBMITTED: A- Distal esophagus biopsy MICROSCOPIC DIAGNOSIS A. Esophagus, distal, biopsy: * Squamous mucosa with up to 3 eosinophils per high power field. * Columnar mucosa negative for goblet cell metaplasia. MICROSCOPIC DESCRIPTION Slides are reviewed. GROSS DESCRIPTION A. Received in formalin in a container labeled with the patient's name, date of , and distal esophagus biopsy are multiple gasca-pink fragments of mucosal tissue measuring 1.3 x 0.5 x 0.2 cm in aggregate. Submitted in toto in A1. [facility] 02-05-2025 CPT:58442
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
[2025-02-04 15:15] VITALS: BP 124/66; BP 129/74; PULSE 63; RESP 16; TEMP 36.2; O2SAT 95
--- NOTE | 2025-02-04 15:18 | OP.CCLET_ITS ---
02/04/2025 No Primary Care Physician Re : Upper GI endoscopy procedure for Lesia Randy Dear Care Physician This procedure was performed on Tuesday, February 04, 2025. My impressions and recommendations are as follows: Impressions : - Esophageal mucosal changes secondary to eosinophilic esophagitis. - Moderate Schatzki ring. Dilated. - Abnormal esophageal motility, suspicious for esophageal spasm. - Hiatal hernia. - Zechariah-en-Y gastrojejunostomy with gastrojejunal anastomosis characterized by healthy appearing mucosa. - Normal examined jejunum. - Biopsies were taken with a cold forceps for evaluation of eosinophilic esophagitis. Recommendations : - Discharge patient to home. - Resume previous diet. - Continue present medications. - Await pathology results. My findings are described in the full procedure note, which is enclosed. If I can be of further assistance, please feel free to contact me at . Sincerely, Jose G Friend, DO 02/04/2025 3:17:26 PM This report has been signed electronically.
--- NOTE | 2025-02-04 15:18 | OP.EGD_ITS ---
Patient Name: Lesia Padilla Procedure Date: 02/04/2025 2:49 PM Date of : 1975 Age: 49 Procedure: Upper GI endoscopy Indications: Dysphagia Providers: Jose G Sanches DO Referring MD: No Primary Care Physician Medicines: Monitored Anesthesia Care Patient Profile: This is a 49 year old female. Refer to note in patient chart for documentation of history and physical. Patient has symptoms of dysphagia with solids. Her most recent EGD for biopsy. Complications: No immediate complications. Procedure: Pre-Anesthesia Assessment: - Prior to the procedure, a History and Physical was performed, and patient medications and allergies were reviewed. The patient is competent. The risks and benefits of the procedure and the sedation options and risks were discussed with the patient. All questions were answered and informed consent was obtained. Patient identification and proposed procedure were verified by the physician in the pre-procedure area. Mental Status Examination: alert and oriented. Airway Examination: normal oropharyngeal airway and neck mobility. Respiratory Examination: clear to auscultation. CV Examination: normal. Prophylactic Antibiotics: The patient does not require prophylactic antibiotics. Prior Anticoagulants: The patient has taken no anticoagulant or antiplatelet agents. ASA Grade Assessment: II - A patient with mild systemic disease. After reviewing the risks and benefits, the patient was deemed in satisfactory condition to undergo the procedure. The anesthesia plan was to use monitored anesthesia care (MAC). Immediately prior to administration of medications, the patient was re-assessed for adequacy to receive sedatives. The heart rate, respiratory rate, oxygen saturations, blood pressure, adequacy of pulmonary ventilation, and response to care were monitored throughout the procedure. The physical status of the patient was re-assessed after the procedure. After obtaining informed consent, the endoscope was passed under direct vision. Throughout the procedure, the patient's blood pressure, pulse, and oxygen saturations were monitored continuously. The Endoscope was introduced through the mouth, and advanced to the anastomosis site of gastric bypass. The upper GI endoscopy was accomplished without difficulty. The patient tolerated the procedure well. Scope In: 3:03:56 PM Scope Out: 3:10:13 PM Total Procedure Duration Time 0 hours 6 minutes 17 seconds Findings: Mucosal changes including ringed esophagus, feline appearance, longitudinal furrows and small-caliber esophagus were found in the middle third of the esophagus and in the lower third of the esophagus. Biopsies were obtained from the proximal and distal esophagus with cold forceps for histology of suspected eosinophilic esophagitis. Verification of patient identification for the specimen was done. Estimated blood loss was minimal. A moderate Schatzki ring was found at the gastroesophageal junction. A guidewire was placed and the scope was withdrawn. Dilation was performed with a Savary dilator with no resistance at 60 Fr. The dilation site was examined and showed moderate improvement in luminal narrowing. Estimated blood loss was minimal. Abnormal motility was noted in the upper third of the esophagus. The cricopharyngeus was abnormal. There is spasticity of the esophageal body. The distal esophagus/lower esophageal sphincter is spastic, but gives up passage to the endoscope. Primary peristaltic waves are noted. A hiatal hernia was present. Evidence of a Zechariah-en-Y gastrojejunostomy was found. The gastrojejunal anastomosis was characterized by healthy appearing mucosa. This was not traversed. The dglyh-pf-ixfatew limb was characterized by healthy appearing mucosa. The jejunojejunal anastomosis was characterized by healthy appearing mucosa. The rewwhbjn-eo-lidotop limb was not examined as it could not be found. The excluded stomach was not examined as it could not be found. The examined jejunum was normal. Impression: - Esophageal mucosal changes secondary to eosinophilic esophagitis. - Moderate Schatzki ring. Dilated. - Abnormal esophageal motility, suspicious for esophageal spasm. - Hiatal hernia. - Zechariah-en-Y gastrojejunostomy with gastrojejunal anastomosis characterized by healthy appearing mucosa. - Normal examined jejunum. - Biopsies were taken with a cold forceps for evaluation of eosinophilic esophagitis. Recommendation: - Discharge patient to home. - Resume previous diet. - Continue present medications. - Await pathology results. Procedure Code(s): --- Professional --- 18023, Esophagogastroduodenoscopy, flexible, transoral; with insertion of guide wire followed by passage of dilator(s) through esophagus over guide wire 68183, 59,51, Esophagogastroduodenoscopy, flexible, transoral; with biopsy, single or multiple CPT copyright 2021 [employer]. All rights reserved. The codes documented in this report are preliminary and upon business office representative review may be revised to meet current compliance requirements. Jose G Sanches DO 02/04/2025 3:17:26 PM This report has been signed electronically. Number of Addenda: 0 Note Initiated On: 02/04/2025 2:49 PM
[2025-02-04 15:20] VITALS: BP 120/63; BP 124/66; BP 129/74; PULSE 69; RESP 16; TEMP 36.2; O2SAT 97; O2SAT 98
--- NOTE | 2025-02-04 15:20 | PCM.POST.ANE ---
Anesthesia: Postop Eval I Current Vital Signs Temperature: 97.1 F Pulse Rate: 69 Blood Pressure: 124/66 Respiratory Rate: 16 Pulse Ox: 97 Assessment Airway patent: Yes Spontaneous unlabored respirations: Yes nausea: No Vomiting: No Anesthesia Complication: No Fluid Hydration Crystalloid volume administer (ml): 400 Total IV fluid infused: 400 Progress Note Anesthesia document: Postop Eval 1 completed: Yes
[2025-02-04 15:25] VITALS: BP 126/68; BP 129/74; PULSE 62; RESP 16; O2SAT 97
--- NOTE | 2025-02-04 15:25 | POSTOPAN2_ITS ---
Anesthesia Postop Eval I Sum Postop Eval Completion status Anesthesia document: Postop Eval 1 completed: Yes Anesthesia Postop Eval I Summary Anesthesia Postop Eval I Summary: Anesthesia Postop Eval I: Assessment Summary Airway patent Yes 02/04/25 15:20 DNA ANALYST.TNES Spontaneous unlabored Yes 02/04/25 15:20 DNA ANALYST.TNES respirations Mental status nausea No 02/04/25 15:20 DNA ANALYST.TNES Vomiting No 02/04/25 15:20 DNA ANALYST.TNES Anesthesia Postop Eval I: Fluid Summary Crystalloid volume administer 400 02/04/25 15:20 DNA ANALYST.TNES (ml) Colloids volume administered ( ml) Blood Product volume administered (ml) Total IV fluid infused 400 02/04/25 15:20 DNA ANALYST.TNES Anesthesia Postop Eval I: Summary Notes Anesthesia Complication No 02/04/25 15:20 DNA ANALYST.TNES Anesthesia Complication Comment: Post-operative progress note Anesthesia: Postop Eval II Evaluation Mental status: Awake Pain Level: 0 nausea: No Vomiting: No
--- NOTE | 2025-02-04 15:25 | PCM.POSTANE2 ---
Anesthesia Postop Eval I Sum Postop Eval Completion status Anesthesia document: Postop Eval 1 completed: Yes Anesthesia Postop Eval I Summary Anesthesia Postop Eval I Summary: Anesthesia Postop Eval I: Assessment Summary Airway patent Yes 02/04/25 15:20 ROOM MANAGER.TNES Spontaneous unlabored Yes 02/04/25 15:20 ROOM MANAGER.TNES respirations Mental status nausea No 02/04/25 15:20 ROOM MANAGER.TNES Vomiting No 02/04/25 15:20 ROOM MANAGER.TNES Anesthesia Postop Eval I: Fluid Summary Crystalloid volume administer 400 02/04/25 15:20 ROOM MANAGER.TNES (ml) Colloids volume administered ( ml) Blood Product volume administered (ml) Total IV fluid infused 400 02/04/25 15:20 ROOM MANAGER.TNES Anesthesia Postop Eval I: Summary Notes Anesthesia Complication No 02/04/25 15:20 ROOM MANAGER.TNES Anesthesia Complication Comment: Post-operative progress note Anesthesia: Postop Eval II Evaluation Mental status: Awake Pain Level: 0 nausea: No Vomiting: No
[2025-02-04 15:30] VITALS: BP 102/79; BP 129/74; PULSE 57; RESP 16; TEMP 36.3; O2SAT 98
[2025-02-04 15:48] VITALS: BP 129/74
== END 2025-02-04 16:03 | disposition home or self-care (01) ==
LOC: EN 12:50 → AC 12:51
PROVIDERS: Visit Provider Internal Medicine Gastroenterology
PROC: 0DJ08ZZ Inspection of Upper Intestinal Tract, Via Natural or Artificial Opening Endoscopic (ICD-10-PCS; CPT 43235; principal; 2025-02-04 14:10)
DX: K22.2 Esophageal obstruction (principal); K22.4 Dyskinesia of esophagus; K20.0 Eosinophilic esophagitis; R13.10 Dysphagia, unspecified; K44.9 Diaphragmatic hernia without obstruction or gangrene; L40.9 Psoriasis, unspecified; K21.9 Gastro-esophageal reflux disease without esophagitis; Z79.02 Long term (current) use of antithrombotics/antiplatelets; Z79.899 Other long term (current) drug therapy; Z86.73 Personal history of transient ischemic attack (TIA), and cerebral infarction without residual deficits; Z98.84 Bariatric surgery status
CPT/HCPCS: 43239; 43248; 88305; C1769